=== PATIENT | female | born 1950 ===

== ENCOUNTER 2020-10-22 06:00 | Outpatient (RCR) | payer MEDICARE, SELFPAY | END 2020-11-19 23:59 | disposition home or self-care (01) | LOC: GPT 06:00 | PROVIDERS: PCP Family Medicine; Referring Provider Family Medicine; Visit Provider Family Medicine | DX: M54.10 Radiculopathy, site unspecified (principal); M51.36 Other intervertebral disc degeneration, lumbar region; Z68.35 Body mass index [BMI] 35.0-35.9, adult; I10 Essential (primary) hypertension; M81.0 Age-related osteoporosis without current pathological fracture | CPT/HCPCS: 97032; 97110; 97112; 97140; 97161; 97530; 97760; G0283 ==